=== PATIENT | female | born 1985 | race Caucasian/White ===

== ENCOUNTER → 2020-04-18 | Outpatient (CLI) | payer OTHER, MEDICAID ==
[2020-04-18 16:06] LABS: BASO # 0.1 10^3/uL (0.0-0.2); BASO % 0.7 % (0.0-1.0); EOS # 0.1 10^3/uL (0.0-0.5); EOS % 1.3 % (0.0-3.0); HEMATOCRIT 41.7 % (36.0-47.0); HEMOGLOBIN 13.1 g/dl (12.0-15.5); LYMPH # 2.1 10^3/uL (1.5-5.0); LYMPH % 25.1 % (24.0-44.0); MEAN CORPUSCULAR HEMOGLOBIN 28.1 pg (27.0-33.0); MEAN CORPUSCULAR HGB CONC 31.4 g/dl (32.0-36.5); MEAN CORPUSCULAR VOLUME 89.5 fl (80.0-96.0); MONO # 0.9 10^3/uL (0.0-0.8); MONO % 10.5 % (0.0-5.0); NEUTROPHILS # 5.2 10^3/uL (1.5-8.5); NEUTROPHILS % 61.9 % (36.0-66.0); PLATELET COUNT, AUTOMATED 371 10^3/uL (150-450); RED BLOOD COUNT 4.66 10^6/uL (4.00-5.40); WHITE BLOOD COUNT 8.4 10^3/uL (4.0-10.0)
[2020-04-18 16:59] LABS: HEPATITIS C VIRUS ABY INDEX 0.4 INDEX (<0.8); HIV 1&2 SCREEN CENTAUR NEGATIVE (NEGATIVE)
[2020-04-18 17:39] LABS: CHLAMYDIA DNA AMPLIFICATION NEGATIVE (NEGATIVE); GC DNA AMPLIFICATION NEGATIVE (NEGATIVE)
== END ==
LOC: M PLALAB 13:27
PROVIDERS: ATTEND Advanced Practice Midwife
DX: Z34.81 Encounter for supervision of other normal pregnancy, first trimester (principal); Z36.89 Encounter for other specified antenatal screening

== ENCOUNTER → 2020-06-18 | Outpatient (CLI) | payer SELFPAY | LOC: M PLALAB 09:52 | PROVIDERS: ATTEND Advanced Practice Midwife | DX: Z36.0 Encounter for antenatal screening for chromosomal anomalies (principal) ==

== ENCOUNTER → 2020-06-25 | Outpatient (CLI) | payer SELFPAY ==
--- NOTE | 2020-06-25 10:48 | REP ---
INDICATION: ANATOMY. COMPARISON: None TECHNIQUE: Real-time sonographic evaluation of the gravid uterus performed. FINDINGS: Estimated gestational age is18 weeks 6 days, EDC 11/20/2020. By LMP 19 weeks 0 days, ROXY 09/21/2020. Today's measurements indicate appropriate growth. Presentation: Breech Placenta posterior, grade 1, without evidence of placenta previa. heart rate is recorded at 155 beats per minute. Amniotic fluid is subjectively normal. Closed cervical length is measured at 3.4 cm. Biometry chart: BPD: 42 mm, 18 weeks 5 days, percentile. HC: 157 mm, 18 weeks 4 days, percentile AC: 132 mm, 18 weeks 5 days, percentile Femur length: 29 mm, 19 weeks 0 days, percentile HC to AC ratio: 1.19, normal range 1.06-1.25. Estimated weight: 257g, 34 percentile. anatomy: Cranium: Grossly normal Lateral Ventricles/Choroid Plexus: Grossly normal Posterior Fossa/Cerebellum: Grossly normal Nose/lips/profile: Grossly normal Four chamber heart: Partially obscured by lie Right ventricular outflow tract: Grossly normal Left ventricular outflow tract: Partially obscured by lie Left-sided stomach: Grossly normal Kidneys: Grossly normal Bladder: Grossly normal Cord Insertion: Grossly normal 3 vessel cord: Grossly normal Spine: Grossly normal IMPRESSION: Living single intrauterine gestation as above. Visualized anatomy normal. Due to lie, the four-chamber view And left ventricular outflow tract are incompletely evaluated and may be rechecked later in the 2nd trimester. <Electronically signed by Sascha Joe > 06/25/20 [id number]
== END ==
LOC: M WHC 09:01
PROVIDERS: ATTEND Obstetrics & Gynecology
DX: Z34.92 Encounter for supervision of normal pregnancy, unspecified, second trimester (principal)

== ENCOUNTER → 2020-07-16 | Outpatient (REF) | payer BC | LOC: M PLALAB 13:41 | PROVIDERS: ATTEND Obstetrics & Gynecology | DX: Z34.92 Encounter for supervision of normal pregnancy, unspecified, second trimester (principal); Z3A.00 Weeks of gestation of pregnancy not specified; Z53.9 Procedure and treatment not carried out, unspecified reason ==

== ENCOUNTER → 2020-07-30 | Outpatient (CLI) | payer BC ==
--- NOTE | 2020-07-30 11:50 | REP ---
INDICATION: F/U ANATOMY. COMPARISON: None. TECHNIQUE: Transabdominal obstetric sonography. FINDINGS: Scanning through the gravid uterus demonstrates a viable single intrauterine gestation in transverse, head to the maternal right lie. motion is observed and heart rate is recorded at 138 beats per minute. A fundal placenta is seen, grade 0, without evidence of placenta previa. Amniotic fluid is subjectively normal. Closed cervical length is measured at 3.8 cm transabdominally. No extrauterine abnormality is observed. Four-chamber heart and left ventricular outflow tract views or achieved today. An echogenic intracardiac focus is observed in the left ventricle.. Biometry chart: BPD 5.9 cm, 24 weeks 0 days Head circumference 21.9 cm, 23 weeks 6 days Abdominal circumference 19.2 cm, 23 weeks 6 days Femur length 4.3 cm 23 weeks 6 days Humeral length 3.9 cm, 24 weeks 0 days HC AC ratio normal 1.14 Cephalic index normal 0.74 Estimated weight 639 g, 1 lb 6 oz, 36 percentile for 24 weeks 0 days IMPRESSION: Viable single intrauterine gestation at 23 weeks 6 days by today's composite sonographic criteria. ROXY by today's sonography November 20, 2020.. No complication identified. Expected gestational age estimate based on prior sonography is 24 weeks 0 days. ROXY by prior sonography November 19, 2020. An echogenic focus is visible in the left ventricle. 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 <Electronically signed by Shimon Houser > 07/30/20 [id number]
== END ==
LOC: M WHC 09:35
PROVIDERS: ATTEND Obstetrics & Gynecology
DX: Z34.92 Encounter for supervision of normal pregnancy, unspecified, second trimester (principal)

== ENCOUNTER → 2020-08-13 | Outpatient (REF) | payer BC ==
[2020-08-13 13:59] LABS: HEMOGLOBIN 11.5 g/dl (12.0-15.5); MEAN CORPUSCULAR HEMOGLOBIN 27.9 pg (27.0-33.0); MEAN CORPUSCULAR HGB CONC 30.3 g/dl (32.0-36.5); MEAN CORPUSCULAR VOLUME 92.2 fl (80.0-96.0); PLATELET COUNT, AUTOMATED 299 10^3/uL (150-450); RED BLOOD COUNT 4.12 10^6/uL (4.00-5.40); WHITE BLOOD COUNT 8.4 10^3/uL (4.0-10.0)
== END ==
LOC: M PLALAB 10:16
PROVIDERS: ATTEND Obstetrics & Gynecology
DX: Z34.92 Encounter for supervision of normal pregnancy, unspecified, second trimester (principal)

== ENCOUNTER → 2020-10-22 | Outpatient (REF) | payer BC | LOC: M SFHCWAGY 13:00 | PROVIDERS: ATTEND Obstetrics & Gynecology | DX: Z34.93 Encounter for supervision of normal pregnancy, unspecified, third trimester (principal) ==

== ENCOUNTER 2020-11-20 07:46 | Inpatient (IN) | payer BC ==
[2020-11-20] VITALS (27 sets, daily range): BP systolic 91–144; BP diastolic 50–82
[~2020-11-20] VITALS: Ht 157.5 cm; Wt 78.9 kg
[2020-11-20] MEDS ORDERED: PRENTAB9 PO (08:02)
[2020-11-20] MEDS ORDERED: LACTATED RINGER'S 1000 ML IV STA (08:50)
[2020-11-20] MEDS ORDERED: LR 1,000 ML IV SCH (08:50)
[2020-11-20] MEDS ORDERED: PENICILLIN G POTASSIUM IV 5 MU in D5W MINI-BAG PLUS 100 ML IV STA (08:50)
--- NOTE | 2020-11-20 09:20 | HPEPDOC ---
Obstetrical History & Physical General Date of Admission Nov 20, 2020 at 08:47 History of Present Illness 34 yo female at 40 1/7 weeks gestation by LMP presents with regular cont ractions every 5 minutes for the last several hours. No vaginal bleeding. Good movement. 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 Marital Status: Family situation: Spouse/partner home Psychosocial History: No pertinent psych hx * Smoker: non-smoker Allergies Coded Allergies: No Known Allergies (Unverified , 08/27/20) Medications Scheduled No.137/Iron/Folic Acd ( Vitamin Tablet) 1 Each Tablet, 1 TAB PO DAILY Physical Examination Physical Examination GENERAL: Alert and oriented times three. BREAST: . ABDOMEN: Gravid and non-tender to touch. FETUS: Is vertex (VTX) by sterile vaginal examination (SVE), fetus is vertex (VTX) by Federico. HEART RATE: Regular rate and rhythm. LUNGS: Clear to auscultation (CTA). EXTREMITIES: No edema. No clonus. Deep tendon reflexes (DTRs) + . Laboratory Data 24H LABS Laboratory Tests 2 11/20/20 08:58: Serology Scanned Report Hepatitis B Testing Pertinent Laboratoy Data Group B Streptococcus: Positive Vaginal Examination Dilation: 5 cm Effacement: 90% Station: -2 Cervical Consistency: Medium Cervical Position: Posterior Presentation: Cephalic presentation Assessment Variability: Moderate Accelerations: Positive Decelerations: None Tocometer Contractions: Yes Frequency: regular Assessment/Plan Assessment Pt is a 34 year-old (G)3 para (P)1011 at 40+1 weeks by LMP Presents to Labor and Delivery in labor. Plan Admit and orient. Design Engineering Technician and consent. Group B Streptococcus (GBS) negative. Labs and intravenous (IV) per unit protocol. Anticipate [normal spontaneous delivery ()]. C-S as appropriate. ANNABEL WELLS MD Nov 20, 2020 09:20
[2020-11-20 10:12] LABS: HEMOGLOBIN 12.5 g/dl (12.0-15.5); MEAN CORPUSCULAR HEMOGLOBIN 28.5 pg (27.0-33.0); MEAN CORPUSCULAR HGB CONC 32.1 g/dl (32.0-36.5); MEAN CORPUSCULAR VOLUME 88.8 fl (80.0-96.0); PLATELET COUNT, AUTOMATED 342 10^3/uL (150-450); RED BLOOD COUNT 4.39 10^6/uL (4.00-5.40); WHITE BLOOD COUNT 14.4 10^3/uL (4.0-10.0)
[2020-11-20] MEDS ORDERED: FENTANYL 2MCG/ML ROPIVACAINE 0.2% IN 0.9% NACL 100ML IVBAG As Ordered ONE (12:54)
[2020-11-20] MEDS ORDERED: PENICILLIN G POTASSIUM IV 2.5 MU in IV 1 EA IV SCH (13:00)
[2020-11-20] MEDS ORDERED: OXYTOCIN DRIP 30 UNITS in IV 1 EA IV SCH (13:25)
[2020-11-20] MEDS ORDERED: EPIDURAL/PCA KEYS XX PRN (14:10)
[2020-11-20] MEDS ORDERED: NALOXONE INJ 0.4MG/1ML VIAL (J2310 PER 1MG) IV PRN (14:10)
[2020-11-20] MEDS ORDERED: ONDANSETRON 4MG/2ML VIAL IV PRN (14:10)
[2020-11-20] MEDS ORDERED: EPIDURAL COMMENT XX SCH (14:10)
[2020-11-20] MEDS ORDERED: REFRIGERATOR IV KEYS XX PRN (14:10)
[2020-11-20] MEDS ORDERED: FENTANYL/ROPIVACAINE/NACL BAG 100 ML EPIDURAL SCH (14:10)
[2020-11-20] MEDS ORDERED: diphenhydrAMINE 50MG/ML VIAL (J1200) IV PRN (14:10)
[2020-11-20] MEDS ORDERED: LIDOCAINE 1% MDV 20ML VIAL As Ordered ONE (17:14)
[2020-11-20] MEDS ORDERED: OXYTOCIN DRIP 30 UNITS in IV 1 EA IV ONE (17:40)
[2020-11-20] MEDS ORDERED: ACETAMINOPHEN 500 MG TAB PO PRN (17:40)
[2020-11-20] MEDS ORDERED: LIDOCAINE 1% MDV 20ML VIAL INFIL ONE (17:40)
[2020-11-20] MEDS ORDERED: IBUPROFEN 600MG TAB PO PRN (17:40)
[2020-11-20] MEDS ORDERED: METHYLERGONOVINE MALEATE 0.2 MG TAB PO PRN (17:40)
[2020-11-20] MEDS ORDERED: DIBUCAINE 1% OINTMENT 30GM TOP PRN (17:40)
[2020-11-20] MEDS ORDERED: MEASLES,MUMPS,RUBELLA VACCINE INJ (MMR-II) (90707) SC SCH (17:40)
[2020-11-20] MEDS ORDERED: ACETAMINOPHEN TAB 650MG DOSE (2X325MG) PO PRN (17:40)
[2020-11-20] MEDS ORDERED: RHOGAM 300 MCG (1500 IU) INJ (J2790) IM SCH (17:40)
[2020-11-20] MEDS ORDERED: DOCUSATE SODIUM 100MG CAPSULE PO PRN (17:40)
--- NOTE | 2020-11-20 17:46 | DNPDOC ---
[facility] Delivery Note Delivery Note DATE OF DELIVERY: November 20, 2020 PREDELIVERY DIAGNOSIS: 40-1/7 weeks' gestation, labor. POST DELIVERY DIAGNOSIS: Delivered. PROCEDURE: Spontaneous vaginal delivery. HOTEL SERVICES SALES REPRESENTATIVE: Dr. Annabel Wells MD ANESTHESIA: epidural. ESTIMATED BLOOD LOSS: 300 mL. FINDINGS: 7 pound 7 ounce female , Score 8/9 DELIVERY SUMMARY: Patient is a 34-year-old 2 now para 2 who was admitted to labor and delivery for labor. She eventually had Pitocin augmentation. After a 40 minute second stage of labor she had a spontaneous vaginal delivery of a 7 lb. 7 oz female infant. No nuchal cord. Shoulders delivered spontaneously with ease. Placenta delivered spontaneously and appeared intact. IV Pitocin administered after delivery of the placenta. Second degree perineal laceration repaired with 2-O Chromic under local anesthesia in the usual fashion. Sponge and needle counts correct. ANNABEL WELLS MD Nov 20, 2020 17:46
[2020-11-20] MEDS: IBUPROFEN 800 MG TAB PO PRN (20:52)
[2020-11-21 06:00] VITALS: BP 122/66
[2020-11-21] MEDS: IBUPROFEN 800 MG TAB PO PRN ×2 (06:34→14:41)
[2020-11-21] MEDS: PRENATAL VITAMINS CHEWABLE TABLET PO SCH (08:01)
[2020-11-21 18:06] VITALS: BP 112/63
[2020-11-22 06:05] VITALS: BP 100/55
[2020-11-22] MEDS: IBUPROFEN 800 MG TAB PO PRN (06:33)
[2020-11-22] MEDS: PRENATAL VITAMINS CHEWABLE TABLET PO SCH (08:43)
== END 2020-11-22 12:05 | disposition home or self-care (01) | DRG 560 ==
LOC: M LDO 07:46 → M LDI 08:47 → M OBS 20:08
PROVIDERS: ADMIT Specialist; ATTEND Specialist
PROC: 10E0XZZ Delivery of Products of Conception, External Approach (ICD-10-PCS; principal; 2020-11-20)
PROC: 0KQM0ZZ Repair Perineum Muscle, Open Approach (ICD-10-PCS; 2020-11-20)
DX: O48.0 Post-term pregnancy (principal); O70.1 Second degree perineal laceration during delivery; Z3A.40 40 weeks gestation of pregnancy; Z37.0 Single live birth

== ENCOUNTER → 2021-08-26 | Outpatient (REF) ==
[~2021-08-26] MED LIST: PRENTAB9 PO
[2021-08-26 12:28] LABS: RSV AMPLIFICATION NEGATIVE (NEGATIVE)
== END ==
LOC: M LABSMTC 10:31
PROVIDERS: ATTEND Family Medicine
DX: Z11.52 Encounter for screening for COVID-19 (principal); Z20.822 Contact with and (suspected) exposure to COVID-19

== ENCOUNTER → 2022-05-14 | Outpatient (REF) ==
[2022-05-14 18:28] LABS: RSV AMPLIFICATION NEGATIVE (NEGATIVE)
== END ==
LOC: M EMP 13:18
PROVIDERS: ATTEND Family Medicine
DX: Z20.822 Contact with and (suspected) exposure to COVID-19 (principal)

== ENCOUNTER → 2022-06-09 | Outpatient (REF) | payer BC | LOC: M SFHCWAGY 12:53 | PROVIDERS: ATTEND Specialist | DX: Z01.419 Encounter for gynecological examination (general) (routine) without abnormal findings (principal); Z77.9 Other contact with and (suspected) exposures hazardous to health; Z12.4 Encounter for screening for malignant neoplasm of cervix ==